=== PATIENT | male | born 1985 | race American Indian/Alaskan Native ===

== ENCOUNTER 2020-01-29 12:44 | Emergency (ER) | payer SELFPAY ==
[2020-01-29 13:34] VITALS: BP 134/86
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
--- NOTE | 2020-01-29 14:59 | XRay Report ---
CERVICAL SPINE 3 VIEWS INDICATION: pain COMPARISON: None. FINDINGS: No acute, displaced fracture is seen. Alignment is within normal limits. No significant degenerative changes. CONCLUSION: 1. No acute findings. LUMBAR SPINE 3 VIEWS INDICATION: Low back pain COMPARISON: None. FINDINGS: No acute, displaced fracture is seen. Alignment is within normal limits. Disc space height is maintained. No significant degenerative changes. CONCLUSION: 1. No acute findings. Signer Name: Aquiles Isidro MD Signed: 01/29/2020 2:55 PM Workstation Name: [id number]
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
[2020-01-29] MEDS ORDERED: KETOROLAC 60 MG/2 ML INJ IM ONE (15:07)
== END 2020-01-29 15:29 | disposition home or self-care (01) ==
LOC: ED 12:44
DX: S00.93XA Contusion of unspecified part of head, initial encounter (principal); S20.229A Contusion of unspecified back wall of thorax, initial encounter; Z79.899 Other long term (current) drug therapy; W22.8XXA Striking against or struck by other objects, initial encounter; Y93.89 Activity, other specified; Y92.89 Other specified places as the place of occurrence of the external cause; Y99.8 Other external cause status
CPT/HCPCS: 72040; 72100; 96372; 99283; J1885